=== PATIENT | female | born 1955 | race Hispanic/Latino ===

== ENCOUNTER 2017-08-14 15:56 | Outpatient (CLI) | payer OTHER | END 2017-08-14 15:57 | disposition home or self-care (01) | LOC: BICMAMMO 15:56 | PROVIDERS: ATTEND Obstetrics & Gynecology | DX: Z12.31 Encounter for screening mammogram for malignant neoplasm of breast (principal) | CPT/HCPCS: 77063; 77067 ==

== ENCOUNTER 2018-08-30 09:45 | Outpatient (CLI) | payer OTHER | END 2018-08-30 09:46 | disposition home or self-care (01) | LOC: BICMAMMO 09:45 | PROVIDERS: ATTEND Obstetrics & Gynecology | DX: Z12.31 Encounter for screening mammogram for malignant neoplasm of breast (principal); R92.1 Mammographic calcification found on diagnostic imaging of breast | CPT/HCPCS: 77063; 77067 ==

== ENCOUNTER 2019-09-10 15:28 | Outpatient (CLI) | payer OTHER ==
--- NOTE | 2019-09-10 15:49 | MMO ---
Bilateral MAMMO Bilat Screen [facility]. CLINICAL HISTORY: Patient is 63 years old and is seen for screening. The patient has no family history of breast cancer. The patient has no personal history of cancer. VIEWS: The views performed were: bilateral craniocaudal with tomosynthesis and bilateral mediolateral oblique with tomosynthesis. FILMS COMPARED: The present examination has been compared to prior imaging studies performed at [facility] on 08/14/2017 and 08/30/2018, and at [facility] on 09/28/2014 and 08/03/2016. This study has been interpreted with the assistance of computer-aided detection. MAMMOGRAM FINDINGS: There are scattered fibroglandular densities. There are no suspicious masses, suspicious calcifications, or new areas of architectural distortion. IMPRESSION: THERE IS NO MAMMOGRAPHIC EVIDENCE OF MALIGNANCY. A ROUTINE FOLLOW-UP MAMMOGRAM IN 1 YEAR IS RECOMMENDED. THE RESULTS OF THIS EXAM WERE SENT TO THE PATIENT. ACR BI-RADS Category 1 - Negative MAMMOGRAPHY NOTE: 1. A negative mammogram report should not delay a biopsy if a dominant of clinically suspicious mass is present. 2. Approximately 10% to 15% of breast cancers are not detected by mammography. 3. Adenosis and dense breasts may obscure an underlying neoplasm. Reported by: FINA KINCAID MD Electonically Signed: [id number]
== END 2019-09-10 15:29 | disposition home or self-care (01) ==
LOC: BICMAMMO 15:28
PROVIDERS: ATTEND Obstetrics & Gynecology
DX: Z12.31 Encounter for screening mammogram for malignant neoplasm of breast (principal)
CPT/HCPCS: 77063; 77067

== ENCOUNTER 2020-10-08 14:49 | Inpatient (IN) | payer BC, OTHER ==
[~2020-10-08 14:49] MED LIST: Iopamidol-370 76% 500 ML 1 ML ONE
[2020-10-08 15:31] LABS: #Eosinphils 0.1 thou/uL (0.0-0.7); #Lymphocytes 0.8 thou/uL (1.20-3.40); #Monocytes 0.5 thou/uL (0.11-0.59); #Neutrophils 5.5 thou/uL (1.40-6.50); %Basophils 0.2 % (0.0-1.0); %Eosinophils 1.5 % (0.0-10.0); %Lymphocytes 11.6 % (21.0-51.0); %Monocytes 6.9 % (0.0-10.0); %Neutrophils 79.8 % (42.0-75.0); Hemoglobin 14.6 g/dL (12.0-16.0); Mean Corpuscular HGB CONC 33.6 g/dL (32.0-36.0); Mean Corpuscular Hemoglobin 30.5 pg (27.0-31.0); Mean Corpuscular Volume 90.8 fL (78.0-98.0); Mean Platelet Volume 6.9 fL (7.4-10.4); Platelet Count 369 thou/uL (130-400); RBC Distribution Width 11.4 % (11.5-14.5); Red Blood Cell (RBC) Count 4.78 mill/uL (4.20-5.40); White Blood Cell (WBC) Count 6.9 thou/uL (4.8-10.8)
[2020-10-08 15:39] LABS: PTT 34.1 sec (22.9-36.1); Prothrombin Time 13.8 sec (12.0-14.7)
[2020-10-08] MEDS ORDERED: Dexamethasone 10 MG/ML VIAL ONE (15:45)
[2020-10-08] MEDS ORDERED: Aspirin Chewable 81 MG TAB ONE (15:45)
[2020-10-08 15:58] LABS: ALT (SGPT) 29 U/L (8-55); AST (SGOT) 34 U/L (5-34); Albumin 3.6 g/dL (3.4-4.8); Alkaline Phosphatase 101 U/L (40-110); Anion Gap 16 mmol/L (10-20); BUN (Urea Nitrogen) 9 mg/dL (9.8-20.1); Bilirubin, Total 0.9 mg/dL (0.2-1.2); Calc. Creatinine Clearance 0 mL/min (70-130); Calcium 8.9 mg/dL (7.8-10.44); Carbon Dioxide 27 mmol/L (23-31); Chloride 95 mmol/L (98-107); Globulin 4.3 g/dL (2.4-3.5); Glucose 365 mg/dL (80-115); Potassium 3.5 mmol/L (3.5-5.1); Protein, Total 7.9 g/dL (5.8-8.1); Sodium 134 mmol/L (136-145)
[2020-10-08] MEDS ORDERED: Dextrose 5% in Water 1,000 ML IV PRN (18:27)
[2020-10-08] MEDS ORDERED: Dextrose 50% Abboject 50 ML SYRINGE SLOW IVP PRN (18:27)
[2020-10-08] MEDS ORDERED: Ondansetron ODT 4 MG TAB PO PRN (18:29)
[2020-10-08] MEDS ORDERED: Acetaminophen 325 MG TAB PO PRN (18:29)
[2020-10-08] MEDS ORDERED: Calcium Carbonate 500 MG ChewTAB PO PRN (18:29)
[2020-10-08] MEDS ORDERED: Ondansetron PF 4 MG/2 ML Vial IVP PRN (18:29)
[2020-10-08] MEDS ORDERED: cefTRIAXone\\ROCEPHIN 1 GM VIAL ONE (18:31)
[2020-10-08 18:36] LABS: Bilirubin Negative (Negative); Blood, Urine Negative (Negative); Clarity Clear (Clear); Glucose, Urine (Dipstick) Greater than 1000 mg/dL (Negative); Ketone, Urine Negative (Negative); Leukocyte Negative Leu/uL (Negative); Nitrite Negative (Negative); Protein, Urine (Dipstick) 20 mg/dL (Neg-Trace); Specific Gravity, Urine 1.025 (1.002-1.036); Urobilinogen 3 mg/dL (Less than 2)
[2020-10-08 19:07] LABS: SARS-CoV-2 NAA Rapid Test DETECTED (NotDetected)
[2020-10-08] MEDS ORDERED: Pharmacy to Dose REMDESIVIR IVPB PRN (19:15)
[2020-10-08] MEDS ORDERED: Azithromycin 500 MG VIAL ONE (19:27)
[2020-10-08] MEDS: Cefepime 1 GM in Sodium Chloride 0.9% 100 ML IVPB SCH (21:39)
[2020-10-08] MEDS: Famotidine 20 MG TAB PO SCH (21:41)
[2020-10-08] MEDS: Insulin Regular 300 UNITS/3 ML VIAL SC PRN (21:42)
[2020-10-08] MEDS ORDERED: Insulin Glargine 15 UNITS in Pre-Filled Syringe 1 EACH SC SCH (22:45)
[2020-10-08] MEDS ORDERED: Lantus 1000 UNITS/10 ML VIAL SC SCH (22:45)
[2020-10-08] MEDS ORDERED: Albuterol 200 PUFF (6.7GM INHALER) INH PRN (22:48)
[2020-10-08] MEDS: Lantus 1000 UNITS/10 ML VIAL SC SCH (23:34)
[2020-10-09] MEDS: Albuterol 200 PUFF (6.7GM INHALER) INH SCH ×6 (01:36→21:49)
[2020-10-09 06:05] LABS: #Lymphocytes 0.6 thou/uL (1.20-3.40); #Monocytes 0.5 thou/uL (0.11-0.59); #Neutrophils 8.4 thou/uL (1.40-6.50); %Basophils 0.1 % (0.0-1.0); %Eosinophils 0.1 % (0.0-10.0); %Lymphocytes 5.8 % (21.0-51.0); %Monocytes 5.2 % (0.0-10.0); %Neutrophils 88.8 % (42.0-75.0); Hemoglobin 13.2 g/dL (12.0-16.0); Mean Corpuscular HGB CONC 32.1 g/dL (32.0-36.0); Mean Corpuscular Hemoglobin 29.3 pg (27.0-31.0); Mean Corpuscular Volume 91.2 fL (78.0-98.0); Mean Platelet Volume 6.6 fL (7.4-10.4); Platelet Count 419 thou/uL (130-400); RBC Distribution Width 11.3 % (11.5-14.5); White Blood Cell (WBC) Count 9.4 thou/uL (4.8-10.8)
[2020-10-09] MEDS: Levothyroxine Sodium 50 MCG TAB PO SCH (06:09)
[2020-10-09] MEDS: Cefepime 1 GM in Sodium Chloride 0.9% 100 ML IVPB SCH ×2 (06:09→17:42)
[2020-10-09] MEDS: Mometasone 200 MCG/Formoterol 5 MCG 120 PUFF INHALER INH SCH ×2 (06:12→18:16)
[2020-10-09] MEDS: Insulin Regular 300 UNITS/3 ML VIAL SC PRN ×4 (06:14→21:39)
[2020-10-09 06:30] LABS: ALT (SGPT) 32 U/L (8-55); AST (SGOT) 33 U/L (5-34); Albumin 3.2 g/dL (3.4-4.8); Alkaline Phosphatase 93 U/L (40-110); Anion Gap 16 mmol/L (10-20); BUN (Urea Nitrogen) 13 mg/dL (9.8-20.1); Bilirubin, Total 0.7 mg/dL (0.2-1.2); Calc. Creatinine Clearance 75 mL/min (70-130); Calcium 8.3 mg/dL (7.8-10.44); Carbon Dioxide 23 mmol/L (23-31); Chloride 99 mmol/L (98-107); Globulin 4.2 g/dL (2.4-3.5); Glucose 292 mg/dL (80-115); Potassium 3.7 mmol/L (3.5-5.1); Protein, Total 7.4 g/dL (5.8-8.1); Sodium 134 mmol/L (136-145)
[2020-10-09] MEDS: Dexamethasone 4 mg/ml Vial SLOW IVP SCH (09:01)
[2020-10-09] MEDS: Doxycycline 100 MG CAP PO SCH ×2 (09:01→21:37)
[2020-10-09] MEDS: Enoxaparin Sodium 40 MG/0.4 ML SYRINGE SC SCH (09:01)
[2020-10-09] MEDS: Famotidine 20 MG TAB PO SCH ×2 (09:02→21:37)
[2020-10-09] MEDS: Zinc Sulfate 220 MG CAP PO SCH (09:02)
[2020-10-09] MEDS: Sodium Chloride 0.65% Nasal 44 ML BOT EA NARE SCH ×3 (09:05→21:49)
[2020-10-09] MEDS ORDERED: Senokot S 8.6-50 MG TAB PO SCH (15:00)
[2020-10-09] MEDS ORDERED: Lantus 1000 UNITS/10 ML VIAL SC SCH (21:00)
[2020-10-09] MEDS ORDERED: FLU VACC QS2020-21(6MOS UP)/PF 60 MCG/0.5 ML SYRINGE IM ONE (21:00)
[2020-10-09] MEDS ORDERED: Ascorbic Acid 500 mg Chewable Tablet PO SCH (21:00)
[2020-10-09] MEDS ORDERED: Cholecalciferol (Vitamin D3) 400 UNITS TAB PO SCH (21:00)
[2020-10-09] MEDS: Senokot S 8.6-50 MG TAB PO PRN (21:38)
[2020-10-09] MEDS: Lantus 1000 UNITS/10 ML VIAL SC SCH (21:41)
[2020-10-10 04:21] VITALS: BMI 27.4
[2020-10-10] MEDS: Albuterol 200 PUFF (6.7GM INHALER) INH SCH ×6 (04:26→22:00)
[2020-10-10] MEDS: Levothyroxine Sodium 50 MCG TAB PO SCH (06:06)
[2020-10-10] MEDS: Insulin Regular 300 UNITS/3 ML VIAL SC PRN ×4 (06:06→20:36)
[2020-10-10] MEDS: Mometasone 200 MCG/Formoterol 5 MCG 120 PUFF INHALER INH SCH ×2 (06:08→18:30)
[2020-10-10 06:39] LABS: #Lymphocytes 1.5 thou/uL (1.20-3.40); #Monocytes 1.1 thou/uL (0.11-0.59); #Neutrophils 8.2 thou/uL (1.40-6.50); %Basophils 0.2 % (0.0-1.0); %Eosinophils 0.3 % (0.0-10.0); %Lymphocytes 13.9 % (21.0-51.0); %Monocytes 10.3 % (0.0-10.0); %Neutrophils 75.2 % (42.0-75.0); Hemoglobin 12.2 g/dL (12.0-16.0); Mean Corpuscular HGB CONC 33.8 g/dL (32.0-36.0); Mean Corpuscular Volume 91.6 fL (78.0-98.0); Mean Platelet Volume 6.7 fL (7.4-10.4); Platelet Count 428 thou/uL (130-400); RBC Distribution Width 11.2 % (11.5-14.5); Red Blood Cell (RBC) Count 3.95 mill/uL (4.20-5.40); White Blood Cell (WBC) Count 10.9 thou/uL (4.8-10.8)
[2020-10-10 06:59] LABS: ALT (SGPT) 42 U/L (8-55); AST (SGOT) 42 U/L (5-34); Albumin 3.2 g/dL (3.4-4.8); Alkaline Phosphatase 83 U/L (40-110); Anion Gap 13 mmol/L (10-20); BUN (Urea Nitrogen) 19 mg/dL (9.8-20.1); Bilirubin, Total 0.5 mg/dL (0.2-1.2); Calc. Creatinine Clearance 72 mL/min (70-130); Calcium 8.5 mg/dL (7.8-10.44); Carbon Dioxide 26 mmol/L (23-31); Chloride 101 mmol/L (98-107); Globulin 3.7 g/dL (2.4-3.5); Glucose 212 mg/dL (80-115); Potassium 3.5 mmol/L (3.5-5.1); Protein, Total 6.9 g/dL (5.8-8.1); Sodium 136 mmol/L (136-145)
[2020-10-10] MEDS: Enoxaparin Sodium 40 MG/0.4 ML SYRINGE SC SCH (08:59)
[2020-10-10] MEDS: Ascorbic Acid 500 mg Chewable Tablet PO SCH (08:59)
[2020-10-10] MEDS: Zinc Sulfate 220 MG CAP PO SCH (09:00)
[2020-10-10] MEDS: Famotidine 20 MG TAB PO SCH ×2 (09:00→20:35)
[2020-10-10] MEDS: Aspirin 81 mg Enteric Coated Tablet PO SCH (09:00)
[2020-10-10] MEDS: Senokot S 8.6-50 MG TAB PO PRN (09:00)
[2020-10-10] MEDS: Dexamethasone 4 mg/ml Vial SLOW IVP SCH (09:01)
[2020-10-10] MEDS: Cholecalciferol (Vitamin D3) 400 UNITS TAB PO SCH (09:01)
[2020-10-10] MEDS: Doxycycline 100 MG CAP PO SCH ×2 (09:01→20:36)
[2020-10-10] MEDS: Sodium Chloride 0.65% Nasal 44 ML BOT EA NARE SCH ×3 (09:05→20:38)
[2020-10-10] MEDS ORDERED: Lantus 1000 UNITS/10 ML VIAL SC SCH (12:08)
[2020-10-11] MEDS: Albuterol 200 PUFF (6.7GM INHALER) INH SCH ×5 (02:00→15:22)
[2020-10-11] MEDS: Levothyroxine Sodium 50 MCG TAB PO SCH (05:12)
[2020-10-11] MEDS: Insulin Regular 300 UNITS/3 ML VIAL SC PRN ×2 (05:21→11:59)
[2020-10-11] MEDS: Mometasone 200 MCG/Formoterol 5 MCG 120 PUFF INHALER INH SCH (06:00)
[2020-10-11] MEDS: Famotidine 20 MG TAB PO SCH (08:22)
[2020-10-11] MEDS: Cholecalciferol (Vitamin D3) 400 UNITS TAB PO SCH (08:23)
[2020-10-11] MEDS: Enoxaparin Sodium 40 MG/0.4 ML SYRINGE SC SCH (08:23)
[2020-10-11] MEDS: Doxycycline 100 MG CAP PO SCH (08:23)
[2020-10-11] MEDS: Ascorbic Acid 500 mg Chewable Tablet PO SCH (08:23)
[2020-10-11] MEDS: Aspirin 81 mg Enteric Coated Tablet PO SCH (08:23)
[2020-10-11] MEDS: Zinc Sulfate 220 MG CAP PO SCH (08:23)
[2020-10-11] MEDS: Sodium Chloride 0.65% Nasal 44 ML BOT EA NARE SCH ×2 (08:24→15:23)
[2020-10-11] MEDS: Dexamethasone 4 mg/ml Vial SLOW IVP SCH (08:39)
[2020-10-11 16:09] VITALS: BP 157/80; TEMP 98.3
== END 2020-10-11 16:58 | disposition home or self-care (01) | DRG 177 ==
LOC: ERS 14:49 → T4-B 18:51
PROVIDERS: ADMIT Internal Medicine; ATTEND Family Medicine
DX: U07.1 COVID-19 (principal); J12.82 Pneumonia due to coronavirus disease 2019; J96.01 Acute respiratory failure with hypoxia; R65.20 Severe sepsis without septic shock; E11.65 Type 2 diabetes mellitus with hyperglycemia; E03.9 Hypothyroidism, unspecified; Z90.49 Acquired absence of other specified parts of digestive tract; Z90.710 Acquired absence of both cervix and uterus; Z98.51 Tubal ligation status
CPT/HCPCS: 0240U; 36415; 36416; 71275; 80053; 81003; 82728; 83735; 83880; 84145; 84443; 84484; 85025; 85379; 85610; 85730; 86140; 87040; 93005; 94664; 96365; 96375; J0456; J0692; J0696; J1100; J1650; J1815; J3490; Q9967

== ENCOUNTER 2020-11-05 15:42 | Outpatient (CLI) | payer BC | END 2020-11-05 15:43 | disposition home or self-care (01) | LOC: BICMAMMO 15:42 | PROVIDERS: ATTEND Obstetrics & Gynecology | DX: Z12.31 Encounter for screening mammogram for malignant neoplasm of breast (principal) | CPT/HCPCS: 77063; 77067 ==

== ENCOUNTER 2021-04-12 15:56 | Outpatient (CLI) | payer OTHER | END 2021-04-12 15:57 | disposition home or self-care (01) | LOC: BICRAD 15:56 | PROVIDERS: ATTEND Internal Medicine Infectious Disease | DX: U07.1 COVID-19 (principal); J84.9 Interstitial pulmonary disease, unspecified | CPT/HCPCS: 71046 ==

== ENCOUNTER 2021-08-29 15:17 | Outpatient (CLI) | payer OTHER | END 2021-08-29 15:18 | disposition home or self-care (01) | LOC: RAD 15:17 | PROVIDERS: ATTEND Internal Medicine | DX: R06.00 Dyspnea, unspecified (principal); R91.8 Other nonspecific abnormal finding of lung field | CPT/HCPCS: 71046 ==

== ENCOUNTER 2022-04-05 15:26 | Outpatient (CLI) | payer MEDICARE | END 2022-04-05 15:27 | disposition home or self-care (01) | LOC: BICMAMMO 15:26 | PROVIDERS: ATTEND Internal Medicine | DX: Z12.31 Encounter for screening mammogram for malignant neoplasm of breast (principal) | CPT/HCPCS: 77063; 77067 ==

== ENCOUNTER 2023-07-04 15:10 | Outpatient (CLI) | payer MEDICARE | END 2023-07-04 15:11 | disposition home or self-care (01) | LOC: BICMAMMO 15:10 | PROVIDERS: ATTEND Internal Medicine | DX: Z12.31 Encounter for screening mammogram for malignant neoplasm of breast (principal) | CPT/HCPCS: 77063; 77067 ==